=== PATIENT | female | born 1930 | race Caucasian/White ===

== ENCOUNTER 2018-04-06 12:40 | Emergency (ER) | payer OTHER ==
[~2018-04-06 12:40] MED LIST: EPINEPHrine SYRINGE 1 MG/10 ML SYRINGE; SODIUM BICARB ADULT 8.4% 50 MEQ/50 ML DISP.SYRIN.
[2018-04-06 12:58] LABS: AGAP ISTAT 24 mmol/L (6-14); BUN ISTAT 44 mg/dL (8-26); CHLORIDE ISTAT 84 mmol/L (98-110); CREATININE ISTAT 1.8 mg/dL (0.5-1.4); GLUCOSE ISTAT 361 mg/dL (70-99); HEMATOCRIT ISTAT 32 % (36-40); HEMOGLOBIN ISTAT 10.9 g/dL (12-15); ION CA ISTAT 0.99 mmol/L (1.13-1.32); POTASSIUM ISTAT 5.6 mmol/L (3.5-5.0); SODIUM ISTAT 120 mmol/L (135-145); TOT CO2 ISTAT 19 mmol/L (23-32)
[2018-04-06] MEDS ORDERED: NOREPINEPHRIN 8MG/250ML PREMIX 250 ML IV ×2 (13:00)
[2018-04-06] MEDS: NOREPINEPHRIN 8MG/250ML PREMIX 250 ML IV ×2 (13:00)
[2018-04-06] MEDS: MORPHINE SULFATE 4 MG/ML DISP.SYRIN. IV ×2 (13:02)
[2018-04-06 13:05] LABS: TROPONIN BY ISTAT 0.22 ng/ml (<0.08)
[2018-04-06] MEDS ORDERED: MORPHINE SULFATE 4 MG/ML DISP.SYRIN. ×2 (13:07)
[2018-04-06 13:10] LABS: BASO # 0.1 x10^3/uL (0.0-0.2); BASO % 0 % (0-3); EOS # 0.1 x10^3/uL (0.0-0.7); EOS % 0 % (0-3); HEMATOCRIT 31.8 % (36.0-47.0); HEMOGLOBIN 9.8 g/dL (12.0-15.5); LYMPH # 2.2 x10^3/uL (1.0-4.8); LYMPH % 11 % (24-48); MEAN CORPUSCULAR HEMOGLOBIN 29 pg (25-35); MEAN CORPUSCULAR HGB CONC 31 g/dL (31-37); MEAN CORPUSCULAR VOLUME 93 fL (79-100); MONO # 1.4 x10^3/uL (0.0-1.1); MONO % 7 % (0-9); NEUT # 16.2 x10^3uL (1.8-7.7); NEUT % 81 % (31-73); PLATELET COUNT 163 x10^3/uL (140-400); RED BLOOD COUNT 3.42 x10^6/uL (3.50-5.40); RED CELL DISTRIBUTION WIDTH 15.7 % (11.5-14.5)
[2018-04-06 13:14] LABS: ADD MAN DIFF? YES
[2018-04-06] MEDS: CALCIUM GLUCONATE 1,000 MG/10 ML VIAL. IVP ×2 (13:15)
[2018-04-06] MEDS: INSULIN REGULAR 100 UNIT/ML 3ML VIAL. IV ×2 (13:15)
[2018-04-06 13:22] LABS: ANION GAP 18 (6-14); BLOOD UREA NITROGEN 47 mg/dL (7-20); BUN/CREATININE RATIO 20 (6-20); CALCIUM 7.8 mg/dL (8.5-10.1); CARBON DIOXIDE 22 mmol/L (21-32); CHLORIDE 87 mmol/L (98-107); CREATININE 2.3 mg/dL (0.6-1.0); GLUCOSE 394 mg/dL (70-99); POTASSIUM 5.9 mmol/L (3.5-5.1); SODIUM 127 mmol/L (136-145)
[2018-04-06 13:27] LABS: ALBUMIN 1.7 g/dL (3.4-5.0); ALBUMIN/GLOBULIN RATIO 0.6 (1.0-1.7); ALK PHOS 89 U/L (46-116); ALT (SGPT) 52 U/L (14-59); AST (SGOT) 157 U/L (15-37); LIPASE 149 U/L (73-393); MAGNESIUM 2.1 mg/dL (1.8-2.4); PROTHROMBIN TIME PATIENT 67.6 SEC (11.7-14.0); TOTAL BILIRUBIN 0.5 mg/dL (0.2-1.0); TOTAL PROTEIN 4.5 g/dL (6.4-8.2)
[2018-04-06 13:30] LABS: INR 8.2 (0.8-1.1)
[2018-04-06 13:34] LABS: NT-PRO BNP 15046 pg/mL (0-449)
[2018-04-06 13:36] LABS: TROPONINI 0.283 ng/mL (0.000-0.055)
== END 2018-04-06 15:59 | disposition expired ==
LOC: ER 12:40
DX: I46.9 Cardiac arrest, cause unspecified (principal); R63.5 Abnormal weight gain
CPT/HCPCS: 36415; 80047; 80053; 83690; 83735; 83880; 84484; 85025; 85610; 92950; 93005; 94002; 96374; 99291; J0171; J2270